=== PATIENT | female | born 1990 | race Caucasian/White ===

== ENCOUNTER 2016-10-30 19:32 | Outpatient (CLI) | payer BC ==
[~2016-10-30] VITALS: Ht 170.2 cm; Wt 68.2 kg
[~2016-10-30 19:32] MED LIST: CEFTIN 250250 MG/TAB PO; NO CURRENT MEDICATIO; NO HOME MEDICATIONS; NORCO 325 MG-51 TAB PO; PRENATAL PO; ZITHROMAX 250M250 MG PO
[2016-10-30 20:03] VITALS: BP 111/60; PULSE 73; TEMP 98.1
== END 2016-10-30 21:45 | disposition home or self-care (01) ==
LOC: LDRO 19:32
DX: O26.859 Spotting complicating pregnancy, unspecified trimester (principal); R10.9 Unspecified abdominal pain

== ENCOUNTER 2016-12-10 10:33 | Inpatient (IN) | payer BC ==
[~2016-12-10] VITALS: Ht 170.3 cm; Wt 74.1 kg
[2017-01-17] VITALS (20 sets, daily range): BP systolic 101–140; BP diastolic 59–83; PULSE 62–91; TEMP 98.1–98.3
[2017-01-17 06:49] LABS: BASO # 0.1 (0.0-0.2); BASO % 0.5 % (0.0-2.0); EOS # 0.1 (0.0-0.7); EOS % 0.8 % (0-4.0); GRAN # 7.1 (1.4-6.5); GRAN % 66.9 % (42.2-75.2); LYMPH # 2.3 (1.2-3.4); LYMPH % 21.8 % (20.0-51.0); MEAN CELL VOLUME 88 fl (80.0-100.0); MEAN CORPUSCULAR HGB CONC 34 g/dl (33.0-37.0); MEAN PLATELET VOLUME 13.1 fl (7.4-10.4); PLATELET COUNT 96 K/mm3 (130-400); RED BLOOD COUNT 3.88 M/mm3 (4.10-5.30); REDCELL DISTRIBUTION WIDTH-CV 14.3 % (11.5-14.5); WHITE BLOOD COUNT 10.6 K/mm3 (4.8-10.8)
[2017-01-17 06:55] LABS: HEMOGLOBIN 11.7 g/dl (12.5-16.0); MEAN CORPUSCULAR HEMOGLOBIN 30 pg (27.0-31.0)
[2017-01-17] MEDS ORDERED: IBU800 M1 PO (08:52)
[2017-01-17] MEDS ORDERED: PERCOCET 325 MG1 TA2 PO (08:52)
[2017-01-18 02:50] VITALS: BP 103/63; PULSE 69; TEMP 97.9
[2017-01-18 08:30] VITALS: BP 113/80; PULSE 95; TEMP 97.8
[2017-01-18 16:00] VITALS: BP 99/71; PULSE 77; TEMP 97
[2017-01-18 21:15] VITALS: BP 93/53; PULSE 73; TEMP 98.7
[2017-01-19 07:57] VITALS: BP 111/70; PULSE 72; TEMP 98
[2017-01-19 16:04] VITALS: BP 113/69; PULSE 79; TEMP 98.1
[2017-01-19 19:31] VITALS: BP 108/63; PULSE 71; TEMP 97.7
[2017-01-20 08:21] VITALS: BP 107/61; PULSE 78; TEMP 97.9
[2017-01-20] MEDS ORDERED: NORCO 325 MG-7.1 TAB PO (10:16)
== END 2017-01-20 11:05 | disposition home or self-care (01) | DRG 766 ==
LOC: OB 01-17 05:35 → LDR 01-17 08:29 → OB 01-20 11:05 → EDSTATUS 01-21 08:02 → LDRO 01-21 10:33
PROVIDERS: Obstetrics & Gynecology
PROC: 10D00Z1 Extraction of Products of Conception, Low, Open Approach (ICD-10-PCS; principal; 2017-01-17)
DX: O34.211 Maternal care for low transverse scar from previous cesarean delivery (principal); N85.8 Other specified noninflammatory disorders of uterus; Z3A.39 39 weeks gestation of pregnancy; Z37.0 Single live birth
CPT/HCPCS: J0690; J1200; J1885; J2175; J2270; J2370; J2405; J2590; J7120

== ENCOUNTER 2019-01-11 05:53 | Inpatient (IN) | payer BC ==
[2019-01-11] VITALS (19 sets, daily range): BP systolic 105–120; BP diastolic 65–80; PULSE 59–85; TEMP 97.7–98.4
[~2019-01-11] VITALS: Ht 170.2 cm; Wt 75.0 kg
[~2019-01-11 05:53] MED LIST changes: +IBU800 M1 PO; +NORCO 325 MG-7.1 TAB PO; +PERCOCET 325 MG1 TA2 PO
--- NOTE | 2019-01-11 06:00 | NUR ---
0600- Pt arrives on unit ambulatory for scheduled repeat section. Pt oriented to room, changes into gown. 0633- This RN at bedside. EFM and TOCO on and tracing. IV start. Assessment completed. IV start, labs drawn. Consents explained and signed. 0721- EFM and TOCO off. Abd prep completed. Pt up to void. Pt, , and this RN ambulate to OR.
[2019-01-11 07:12] LABS: BASO % 0.3 % (0.0-2.0); EOS # 0.1 (0.0-0.7); EOS % 0.6 % (0-4.0); GRAN # 7.3 (1.4-6.5); HEMOGLOBIN 12.4 g/dl (12.5-16.0); LYMPH # 2.3 (1.2-3.4); LYMPH % 21.4 % (20.0-51.0); MEAN CELL VOLUME 90 fl (80.0-100.0); MEAN CORPUSCULAR HEMOGLOBIN 30 pg (27.0-31.0); MEAN CORPUSCULAR HGB CONC 33 g/dl (33.0-37.0); MONO # 0.9 (0.1-0.6); MONO % 8.5 % (1.7-9.3); PLATELET COUNT 103 K/mm3 (130-400); RED BLOOD COUNT 4.21 M/mm3 (4.10-5.30); REDCELL DISTRIBUTION WIDTH-CV 13.4 % (11.5-14.5)
[2019-01-12 01:30] VITALS: BP 100/61; PULSE 73; TEMP 97.9
[2019-01-12 07:05] VITALS: BP 103/59; PULSE 77; TEMP 97.8
--- NOTE | 2019-01-12 09:08 | NUR ---
Initial visit; Parents thanked [facility] [employer] for offering congratulations and God's blessings for the of ther daughter. [facility] Pro[facility] thanked family for choosing [facility].
[2019-01-12 15:35] VITALS: BP 112/68; PULSE 92; TEMP 97.8
[2019-01-12 23:15] VITALS: BP 103/60; PULSE 70; TEMP 98.8
[2019-01-13 07:38] VITALS: BP 112/63; PULSE 79; TEMP 98.5
[2019-01-13] MEDS ORDERED: MOTRIN 800800 MG/TAB PO (08:25)
[2019-01-13] MEDS ORDERED: PERCOCET 325 MG1 TA2 PO (08:25)
== END 2019-01-13 18:25 | disposition home or self-care (01) | DRG 788 ==
LOC: OB 05:53 → LDR 10:18 → OB 01-13 18:25
PROVIDERS: ADMIT Obstetrics & Gynecology
PROC: 10D00Z1 Extraction of Products of Conception, Low, Open Approach (ICD-10-PCS; principal; 2019-01-11)
DX: O34.211 Maternal care for low transverse scar from previous cesarean delivery (principal); Z3A.39 39 weeks gestation of pregnancy; Z37.0 Single live birth
CPT/HCPCS: J0690; J1885; J2270; J2370; J2405; J2590; J3010; J7120

== ENCOUNTER 2019-01-30 17:10 | Emergency (ER) | payer BC ==
[~2019-01-30] VITALS: Ht 170.2 cm; Wt 65.0 kg
[~2019-01-30 17:10] MED LIST changes: +MOTRIN 800800 MG/TAB PO
[2019-01-30 17:49] VITALS: BP 125/87; TEMP 98.2
[2019-01-30 18:02] LABS: COLLECTION METHOD CLEAN CATCH
[2019-01-30 18:29] LABS: MUCOUS Present /lpf; PH 6 (5-8); SQUAMOUS EPITHELIAL 0-2 /hpf; URINE APPEARANCE Hazy; URINE BACTERIA None Seen /hpf; URINE BILIRUBIN Negative (NEGATIVE); URINE BLOOD 3+ (NEGATIVE); URINE COLOR Yellow; URINE GLUCOSE Negative (NEGATIVE); URINE KETONE Negative (NEGATIVE); URINE LEUKOCYTE ESTERASE 1+ (NEGATIVE); URINE NITRATE Negative (NEGATIVE); URINE PROTEIN(semi-quant) Negative (NEGATIVE); URINE RBC >50 /hpf; URINE UROBILINOGEN Negative (NEGATIVE)
[2019-01-30 19:26] LABS: BASO # 0.1 (0.0-0.2); BASO % 0.7 % (0.0-2.0); EOS # 0.2 (0.0-0.7); GRAN % 71.6 % (42.2-75.2); HEMATOCRIT 39.8 % (37.0-47.0); MEAN CELL VOLUME 91 fl (80.0-100.0); MEAN CORPUSCULAR HEMOGLOBIN 30 pg (27.0-31.0); MEAN CORPUSCULAR HGB CONC 33 g/dl (33.0-37.0); MEAN PLATELET VOLUME 11.6 fl (7.4-10.4); MONO # 0.5 (0.1-0.6); MONO % 5.4 % (1.7-9.3); PLATELET COUNT 204 K/mm3 (130-400); REDCELL DISTRIBUTION WIDTH-CV 12.9 % (11.5-14.5)
[2019-01-30 19:40] LABS: ALBUMIN 4.3 gm/dL (3.5-5.0); BILIRUBIN,TOTAL 0.5 mg/dL (0.0-1.0); C-REACTIVE PROTEIN 0.6 mg/dL (0.0-0.9); CALCIUM 9.6 mg/dL (8.4-10.2); CREATININE, serum 0.8 (0.52-1.25); TOTAL PROTEIN 7.6 gm/dL (6.4-8.2)
[2019-01-30] MEDS ORDERED: OMNICEF 300MG300 MG PO (21:47)
[2019-01-30 22:00] VITALS: PULSE 92
[2019-02-01] MEDS ORDERED: AMOXICILLIN 50500 MG PO (08:46)
== END 2019-01-30 22:00 | disposition home or self-care (01) ==
LOC: COL.ER 17:10
PROVIDERS: Emergency Medicine; Physician Assistant
DX: N13.2 Hydronephrosis with renal and ureteral calculous obstruction (principal); Z79.1 Long term (current) use of non-steroidal anti-inflammatories (NSAID); Z87.442 Personal history of urinary calculi; Z90.49 Acquired absence of other specified parts of digestive tract
CPT/HCPCS: J3010; J7030; Q9967